=== PATIENT | female | born 1940 | race Caucasian/White ===

== ENCOUNTER 2017-06-27 13:25 | Emergency (ER) | payer OTHER ==
[~2017-06-27] VITALS: Ht 172.7 cm; Wt 58.0 kg
[2017-06-27] MEDS ORDERED: MULT-658 PO (13:52)
[2017-06-27] MEDS ORDERED: CALC1TAB76 PO (13:52)
[2017-06-27] MEDS ORDERED: CHOL200024 PO (13:52)
[2017-06-27] MEDS ORDERED: OMEG1CAP23 PO (13:52)
[2017-06-27] MEDS ORDERED: ZOLP10TA5 PO (13:52)
[2017-06-27] MEDS ORDERED: GLUC-149 PO (13:52)
[2017-06-27] MEDS ORDERED: AMLO5TAB2 PO (13:52)
[2017-06-27] MEDS ORDERED: CYAN10005 PO (13:52)
[2017-06-27] MEDS ORDERED: ACYC-114 PO (13:52)
[2017-06-27] MEDS ORDERED: LISI40TA PO (13:52)
[2017-06-27] MEDS ORDERED: ASPI-496 PO (13:52)
[2017-06-27 13:58] LABS: HEMOGLOBIN 16.8 g/dL (11.7-16.4); WHITE BLOOD COUNT 10.1 x10^3/uL (3.4-10)
[2017-06-27] MEDS ORDERED: LORazepam 2 MG/ML, 1ML IVPush ONE (14:00)
[2017-06-27] MEDS ORDERED: PLEASE ENTER ALLERGIES MC SCH ×2 (14:00)
[2017-06-27] MEDS ORDERED: LORazepam 2 MG/ML, 1ML ONE (14:01)
[2017-06-27 14:11] LABS: ASPARTATE AMINO TRANSFERASE 19 U/L (15-37); BLOOD UREA NITROGEN 13 mg/dL (7-18)
[2017-06-27 14:16] LABS: IS PT STATUS REG ER OR PRE ER? YES
[2017-06-27 15:52] VITALS: BP 140/74
== END 2017-06-27 16:21 | disposition home or self-care (01) ==
LOC: ED 16:00
DX: I49.9 Cardiac arrhythmia, unspecified (principal); I10 Essential (primary) hypertension; Z86.73 Personal history of transient ischemic attack (TIA), and cerebral infarction without residual deficits
CPT/HCPCS: 36415; 71010; 80053; 81001; 83880; 84439; 84443; 84484; 85025; 85610; 87086; 93005; 96374; 99285; J2060

== ENCOUNTER 2017-10-06 07:22 | Inpatient (IN) | payer OTHER ==
[~2017-10-06] VITALS: Ht 172.7 cm; Wt 56.9 kg
[~2017-10-06 07:22] MED LIST: ACYC-114 PO; AMLO5TAB2 PO; ASPI-496 PO; CALC1TAB76 PO; CHOL200024 PO; CYAN10005 PO; GLUC-149 PO; LISI40TA PO; MULT-658 PO; OMEG1CAP23 PO; ZOLP10TA5 PO
[2017-10-06] MEDS ORDERED: SODIUM CHLORIDE 0.9% 1,000 ML IV ONE (07:35)
[2017-10-06] MEDS ORDERED: TRIA1TAB3 PO (07:39)
[2017-10-06] MEDS ORDERED: C,E,1CAP PO (07:46)
[2017-10-06] MEDS ORDERED: SUVO15TA PO (07:47)
[2017-10-06 08:00] LABS: BASOPHILS # (AUTO) 0.01 x10^3/uL (0-0.1); BASOPHILS % (AUTO) 0 % (0-1); EOSINOPHILS # (AUTO) 0.01 x10^3/uL (0-0.4); EOSINOPHILS % (AUTO) 0 % (1-7); LYMPHOCYTES % (AUTO) 7 % (22-44); MD NO; MEAN CORPUSCULAR HEMOGLOBIN 30.4 pg (27.0-34.8); MEAN CORPUSCULAR HGB CONC 33.4 g/dL (32.4-35.8); MEAN CORPUSCULAR VOLUME 91.1 fL (80-100); MEAN PLATELET VOLUME 6.8 fL (7.4-10.4); MONOCYTES # (AUTO) 0.53 x10^3/uL (0.2-0.8); MONOCYTES % (AUTO) 5 % (2-9); NEUTROPHILS # (AUTO) 9.58 x10^3/uL (1.8-6.8); NEUTROPHILS % (AUTO) 88 % (42-75); PLATELET COUNT 285 x10^3/uL (130-400); RED BLOOD COUNT 5.28 x10^6/uL (3.82-5.3); RED CELL DISTRIBUTION WIDTH 12.3 % (9.6-15.2)
[2017-10-06] MEDS ORDERED: SODIUM CHLORIDE FLUSH 10ML SYR IVF ONE (08:00)
[2017-10-06 08:13] LABS: ALBUMIN 4.2 g/dL (3.4-5.0); ANION GAP 7 mmol/L (5-15); CALCIUM 9.1 mg/dL (8.5-10.1); CHLORIDE 91 mmol/L (98-107); CREATININE 0.88 mg/dL (0.55-1.02)
[2017-10-06 10:15] LABS: MICROSCOPIC NOT IND
[2017-10-06 10:18] LABS: CHLORIDE,URINE RANDOM 34 mmol/L; CULTURE INDICATED? NO; POTASSIUM,URINE RANDOM 15 mmol/L; SODIUM,URINE RANDOM 34 mmol/L
[2017-10-06] MEDS ORDERED: NS + 20MEQ KCL 1,000 ML IV SCH (10:25)
[2017-10-06] MEDS ORDERED: GUAIFENESIN/DM 200-20MG, 10ML UDC PO PRN (10:30)
[2017-10-06] MEDS ORDERED: ENALAPRILAT 1.25 MG/ML, 2ML IVPush PRN (10:30)
[2017-10-06] MEDS ORDERED: ONDANSETRON 2MG/ML, 2ML IVPush PRN (10:30)
[2017-10-06] MEDS ORDERED: LABETALOL 5MG/ML, 20ML IVPush PRN (10:30)
[2017-10-06] MEDS ORDERED: ACETAMINOPHEN 325 MG TABLET PO PRN (10:30)
[2017-10-06 11:14] LABS: OSMOLALITY,URINE 165 mOsm/kg (500-850)
[2017-10-06 11:28] VITALS: BP 154/76
[2017-10-06 11:38] LABS: RAPID INFLUENZA A Negative (Negative); RAPID INFLUENZA B Negative (Negative)
[2017-10-06 13:00] VITALS: BP 174/71
[2017-10-06] MEDS ORDERED: IBUPROFEN 200 MG TABLET PO PRN (13:00)
[2017-10-06] MEDS: ENOXAPARIN 40 MG/0.4 ML SQ SCH (13:00)
[2017-10-06 16:09] LABS: ANION GAP 8 mmol/L (5-15); CALCIUM 8.6 mg/dL (8.5-10.1); CHLORIDE 100 mmol/L (98-107); CREATININE 0.71 mg/dL (0.55-1.02)
[2017-10-06 18:54] VITALS: BP 131/54
[2017-10-06] MEDS: LISINOPRIL 20 MG TABLET PO SCH (20:13)
[2017-10-06] MEDS ORDERED: ZOLPIDEM 10MG TABLET PO SCH (21:00)
[2017-10-06 22:35] LABS: ANION GAP 7 mmol/L (5-15); CALCIUM 8.4 mg/dL (8.5-10.1); CHLORIDE 104 mmol/L (98-107); CREATININE 0.67 mg/dL (0.55-1.02)
[2017-10-07 01:21] VITALS: BP 154/66
[2017-10-07 05:39] LABS: ANION GAP 9 mmol/L (5-15); CALCIUM 8.7 mg/dL (8.5-10.1); CHLORIDE 104 mmol/L (98-107); CREATININE 0.58 mg/dL (0.55-1.02)
[2017-10-07 07:07] VITALS: BP 197/77
[2017-10-07] MEDS: LISINOPRIL 20 MG TABLET PO SCH (07:55)
[2017-10-07 08:06] VITALS: BP 199/102
[2017-10-07] MEDS ORDERED: CHOLECALCIFEROL 1,000 UNIT TABLET PO SCH (09:00)
[2017-10-07] MEDS ORDERED: ASPIRIN 81 MG TABLET EC PO SCH (09:00)
[2017-10-07] MEDS ORDERED: AMLODIPINE 5 MG TABLET PO SCH (09:00)
[2017-10-07] MEDS ORDERED: ACYCLOVIR 400 MG TABLET PO SCH (09:00)
[2017-10-07] MEDS ORDERED: CYANOCOBALAMIN 1,000 MCG TABLET PO SCH (09:00)
[2017-10-07] MEDS ORDERED: MULTIVITAMIN 1 TABLET PO SCH (09:00)
[2017-10-07 09:09] VITALS: BP 145/75
[2017-10-07] MEDS ORDERED: NS + 20MEQ KCL 1,000 ML IV SCH (10:25)
[2017-10-07] MEDS: ENOXAPARIN 40 MG/0.4 ML SQ SCH (12:45)
[2017-10-07 14:18] VITALS: BP 174/78
[2017-10-07] MEDS ORDERED: AMLO10TA2 PO (14:25)
== END 2017-10-07 15:28 | disposition home or self-care (01) | DRG 641 ==
LOC: ED 08:44 → EDIP 10:06 → 4EST 11:19
PROVIDERS: ADMIT Student in an Organized Health Care Education/Training Program; ATTEND Student in an Organized Health Care Education/Training Program
PROC: 0T9B70Z Drainage of Bladder with Drainage Device, Via Natural or Artificial Opening (ICD-10-PCS; principal; 2017-10-06)
DX: E87.1 Hypo-osmolality and hyponatremia (principal); G47.00 Insomnia, unspecified; J06.9 Acute upper respiratory infection, unspecified; I10 Essential (primary) hypertension; M19.90 Unspecified osteoarthritis, unspecified site; Z79.899 Other long term (current) drug therapy; Z85.3 Personal history of malignant neoplasm of breast; Z86.73 Personal history of transient ischemic attack (TIA), and cerebral infarction without residual deficits; Z87.891 Personal history of nicotine dependence; Z90.710 Acquired absence of both cervix and uterus
CPT/HCPCS: 36415; 71045; 80048; 81003; 82040; 82436; 83930; 83935; 84133; 84300; 84443; 85025; 87400; 93005; 96360; J1650; J3480; J7030

== ENCOUNTER → 2017-10-28 | Outpatient (CLI) | payer OTHER ==
[~2017-10-28] MED LIST changes: +AMLO10TA2 PO; +C,E,1CAP PO; +REGADENOSON 0.4 MG/5 ML SYRINGE ONE; +SUVO15TA PO; +TRIA1TAB3 PO
== END | disposition home or self-care (01) ==
LOC: RAD 11:54
PROVIDERS: ATTEND Internal Medicine Cardiovascular Disease
DX: R06.02 Shortness of breath (principal); R00.8 Other abnormalities of heart beat
CPT/HCPCS: 78452; 93017; A9502; J2785

== ENCOUNTER → 2017-10-29 | Outpatient (CLI) | payer OTHER ==
[~2017-10-29] MED LIST changes: -REGADENOSON 0.4 MG/5 ML SYRINGE ONE
== END | disposition home or self-care (01) ==
LOC: CVU 13:01
PROVIDERS: ATTEND Internal Medicine Cardiovascular Disease
DX: I35.1 Nonrheumatic aortic (valve) insufficiency (principal); I10 Essential (primary) hypertension; I49.3 Ventricular premature depolarization; Z86.73 Personal history of transient ischemic attack (TIA), and cerebral infarction without residual deficits
CPT/HCPCS: 93306

== ENCOUNTER 2018-03-24 08:54 | Emergency (ER) | payer OTHER ==
[~2018-03-24] VITALS: Ht 172.7 cm; Wt 58.0 kg
[2018-03-24] MEDS ORDERED: HYDROcodone/APAP 5/325 TABLET PO ONE (10:00)
[2018-03-24] MEDS ORDERED: HYDROcodone/APAP 5/325 TABLET ONE (10:16)
[2018-03-24 11:30] VITALS: BP 177/81
== END 2018-03-24 11:47 | disposition home or self-care (01) ==
LOC: ED 10:16
DX: S82.832A Other fracture of upper and lower end of left fibula, initial encounter for closed fracture (principal); I49.9 Cardiac arrhythmia, unspecified; Z86.73 Personal history of transient ischemic attack (TIA), and cerebral infarction without residual deficits; I10 Essential (primary) hypertension; W01.0XXA Fall on same level from slipping, tripping and stumbling without subsequent striking against object, initial encounter; Y93.89 Activity, other specified; Y92.89 Other specified places as the place of occurrence of the external cause; Y99.8 Other external cause status
CPT/HCPCS: 29515; 99284

== ENCOUNTER → 2019-09-29 | Outpatient (CLI) | payer MEDICARE ==
[~2019-09-29] MED LIST changes: +AMLO-150 PO; -AMLO10TA2 PO; +AMLO10TA8 PO; -AMLO5TAB2 PO; +CYAN-27 PO; -CYAN10005 PO; +DOXA1TAB2 PO; +LANTANOPROST; +METO-282 PO
== END | disposition home or self-care (01) ==
LOC: ROC 08:21
PROVIDERS: ATTEND Radiology Radiation Oncology
DX: C50.411 Malignant neoplasm of upper-outer quadrant of right female breast (principal); Z85.3 Personal history of malignant neoplasm of breast; Z79.899 Other long term (current) drug therapy
CPT/HCPCS: 99212; G0463

== ENCOUNTER 2020-02-01 07:58 | Outpatient (CLI) | payer MEDICARE | END 2020-02-01 23:59 | disposition home or self-care (01) | LOC: ROC 07:58 | PROVIDERS: ATTEND Radiology Radiation Oncology | DX: Z08 Encounter for follow-up examination after completed treatment for malignant neoplasm (principal); C50.411 Malignant neoplasm of upper-outer quadrant of right female breast | CPT/HCPCS: 99212; G0463 ==